=== PATIENT | male | born 1980 | race African-American/Black ===

== ENCOUNTER 2018-10-30 05:39 | Emergency (ER) | payer MEDICAID ==
[~2018-10-30] VITALS: Ht 180.3 cm; Wt 86.4 kg
[2018-10-30] MEDS ORDERED: CefTRIAXone SODIUM 1 GM/VIAL IM ONE (06:15)
[2018-10-30] MEDS ORDERED: LIDOCAINE/PF 1% 2 ML VIAL IM ONE (06:15)
[2018-10-30] MEDS ORDERED: PERTUSS(ACELL),DIPH,TET VAC/PF 0.5 ML VIAL IM ONE (06:15)
[2018-10-30 07:14] VITALS: BP 140/85
== END 2018-10-30 07:15 | disposition home or self-care (01) ==
LOC: EMS 05:40
DX: S61.452A Open bite of left hand, initial encounter (principal); L02.512 Cutaneous abscess of left hand; W50.3XXA Accidental bite by another person, initial encounter; Y93.89 Activity, other specified; Y92.89 Other specified places as the place of occurrence of the external cause; Y99.8 Other external cause status
CPT/HCPCS: 73130; 90471; 90715; 96372; 99283; J0696; J3490